=== PATIENT | male | born 1985 | race Hispanic/Latino ===

== ENCOUNTER 2017-04-25 17:58 | Emergency (ER) | payer SELFPAY ==
[2017-04-25 18:10] VITALS: PULSE 96; TEMP 98.2
[2017-04-25] MEDS ORDERED: TDAP Vaccine 0.5 mL Syr IM ONE (18:16)
[2017-04-25] MEDS ORDERED: Lidocaine 1% Inj (20ml) IJ STA (18:16)
[2017-04-25] MEDS ORDERED: Lidocaine 1% Inj (20ml) ONE (18:22)
--- NOTE | 2017-04-25 18:24 | ED PDOC ---
Arrival/HPI - General Chief Complaint: Abnormal Skin Integrity Time Seen by Provider: 04/25/17 18:15 Historian: Patient - History of Present Illness Narrative History of Present Illness (Text): 04/25/17 18:21 32 y/o male, no pmh, nkda, last tetanus over 10 years ago, c/o rt. hand laceration x 8 hours. Pt. stated that he was at work, sliced by the metal, no puncture wound, no foreign body sensation, no fever or chills, no headache or night sweat, no dizziness, no other medical or psychological complaints. Past Medical History - Provider Review Nursing Documentation Reviewed: Yes - Cardiac Hx Cardiac Disorders: No - Pulmonary Hx Respiratory Disorders: Yes Hx Asthma: Yes - Neurological Hx Neurological Disorder: No - HEENT Hx HEENT Disorder: No - Renal Hx Renal Disorder: No - Endocrine/Metabolic Hx Endocrine Disorders: No - Hematological/Oncological Hx Blood Disorders: No - Integumentary Hx Dermatological Disorder: No - Musculoskeletal/Rheumatological Hx Musculoskeletal Disorders: No - Gastrointestinal Hx Gastrointestinal Disorders: No - Genitourinary/Gynecological Hx Genitourinary Disorders: No - Psychiatric Hx Psychophysiologic Disorder: No Hx Substance Use: No - Anesthesia Hx Anesthesia: No Hx Anesthesia Reactions: No Hx Malignant Hyperthermia: No Family/Social History - Physician Review Nursing Documentation Reviewed: Yes Family/Social History: Unknown Family HX Smoking Status: Heavy Smoker > 10 Cigarettes Daily Hx Alcohol Use: Yes Frequency of alcohol use: Socially Hx Substance Use: No Allergies/Home Meds Allergies/Adverse Reactions: Allergies No Known Allergies Allergy (Verified 04/25/17 18:02) Review of Systems - Review of Systems Constitutional: absent: Fatigue, Fevers Eyes: absent: Vision Changes ENT: absent: Hearing Changes Respiratory: absent: SOB, Cough Cardiovascular: absent: Chest Pain Musculoskeletal: absent: Arthralgias, Back Pain Skin: Laceration. absent: Rash, Pruritis, Skin Lesions, Abscess, Ulcer, Cellulitis Neurological: absent: Headache, Dizziness, Focal Weakness, Gait Changes, Speech Changes Physical Exam Vital Signs Reviewed: Yes Vital Signs Temp Pulse Resp BP Pulse Ox 04/25/17 18:45 98.2 F 96 H 16 133/97 H 98 04/25/17 18:06 98.2 F 96 H 16 133/93 H 98 Temperature: Afebrile Blood Pressure: Normal Pulse: Regular Respiratory Rate: Normal Appearance: Positive for: Well-Appearing, Non-Toxic, Comfortable Pain Distress: Mild Mental Status: Positive for: Alert and Oriented X 3 - Systems Exam Head: Present: Atraumatic, Normocephalic Pupils: Present: PERRL Extroacular Muscles: Present: EOMI Conjunctiva: Present: Normal Mouth: Present: Moist Mucous Membranes Neck: Present: Normal Range of Motion Respiratory/Chest: Present: Clear to Auscultation, Good Air Exchange. No: Respiratory Distress, Accessory Muscle Use Cardiovascular: Present: Regular Rate and Rhythm, Normal S1, S2. No: Murmurs Abdomen: Present: Normal Bowel Sounds. No: Tenderness, Distention, Peritoneal Signs Back: Present: Normal Inspection Upper Extremity: Present: Normal Inspection, Other (Rt. hand: visible total of 3cm superficial abrasion with 1.5cm is superficial laceration with no oozing/ discharge, no puncture or deep wound, no visible foreign bodies, FROM without limitation, sensation intact, motor 5/5, +radial pulse, capillary refill< 2 seconds, neurovascular intact. ). No: Cyanosis, Edema Lower Extremity: Present: Normal Inspection. No: Edema Neurological: Present: GCS=15, Speech Normal Skin: Present: Warm, Dry, Normal Color. No: Rashes Psychiatric: Present: Alert, Oriented x 3, Normal Insight, Normal Concentration Medical Decision Making ED Course and Treatment: 04/25/17 18:24 -tdap -keflex -Xray offer and the patient declined to rule out foreign body as he doesn't belief there is foreign body. -sensation intact, motor 5/5, wound irrigate with 1000cc normal saline, clean with betadine, 1% lidocaine injected 0.5cc locally, wound explored and show no foreign bodies, 5-0 nylon made 5 stiches, hemotasis obtained, bacitracin applied , sensation intact, motor 5/5, -Discharge home with keflex, bacitracin oinment, motrin, keep the suture wound dry and clean for 48 hours, return to the for wound check and dressing change in 2 days, follow up with your own pmd and hand specialist within 2 days, sutures need to be removed by day 8-10return to the ER for any new or worsening signs or symptoms. - Medication Orders Current Medication Orders: Discontinued Medications Cephalexin Monohydrate (Keflex) 500 mg PO STAT STA PRN Reason: Protocol Stop: 04/25/17 18:17 Last Admin: 04/25/17 18:41 Dose: 500 mg Lidocaine HCl (Lidocaine 1% (20ml)) 0.5 ml IJ STAT STA Stop: 04/25/17 18:17 Lidocaine HCl (Lidocaine 1% (20ml)) Confirm Administered Dose 20 ml .ROUTE .STK- MED ONE Stop: 04/25/17 18:23 Last Admin: 04/25/17 18:43 Dose: Tetanus/Reduced Diphtheria/Acell Pertussis (Boostrix Vaccine Inj) 0.5 ml IM .ONCE ONE Stop: 04/25/17 18:17 Last Admin: 04/25/17 18:41 Dose: 0.5 ml - PA / DOCUMENTATION SUPERVISOR / Resident Statement / has reviewed & agrees with the documentation as recorded. Disposition/Present on Arrival - Present on Arrival Any Indicators Present on Arrival: No History of DVT/PE: No History of Uncontrolled Diabetes: No Urinary Catheter: No History of Decub. Ulcer: No History Surgical Site Infection Following: None - Disposition Have Diagnosis and Disposition been Completed?: Yes Diagnosis: Hand laceration Disposition: HOME/ ROUTINE Disposition Time: 18:27 Patient Plan: Discharge Condition: GOOD Additional Instructions: Discharge home with keflex, bacitracin oinment, motrin, keep the suture wound dry and clean for 48 hours, return to the for wound check and dressing change in 2 days, follow up with your own pmd and hand specialist within 2 days, sutures need to be removed by day 8-10return to the ER for any new or worsening signs or symptoms. Prescriptions: Bacitracin Ointment [Bacitracin] 1 appful TOP BID #15 g Cephalexin [cephalexin] 500 mg PO QID #28 cap Ibuprofen [Motrin Tab] 600 mg PO QID PRN #24 tab PRN Reason: Other Referrals: Joni Paredes MD [Staff Provider] - Follow up with primary [facility] [Outside] - Follow up with primary Forms: WORK NOTE, [facility] (German)
[2017-04-25 18:46] VITALS: BP 133/97
[2017-04-25 19:06] VITALS: RESP 18; O2SAT 99
== END 2017-04-25 19:01 | disposition home or self-care (01) ==
LOC: MERGE 17:58 → ED 17:58
DX: S61.411A Laceration without foreign body of right hand, initial encounter (principal); W45.8XXA Other foreign body or object entering through skin, initial encounter; Y92.89 Other specified places as the place of occurrence of the external cause; Y99.0 Civilian activity done for income or pay; Z23 Encounter for immunization

== ENCOUNTER 2017-05-05 11:20 | Emergency (ER) | payer MEDICAID, OTHER ==
[2017-05-05 11:36] VITALS: BP 117/79; PULSE 91; RESP 16; TEMP 98.9; O2SAT 98
--- NOTE | 2017-05-05 11:52 | ED PDOC ---
Arrival/HPI - General Chief Complaint: Suture/Staple Removal Time Seen by Provider: 05/05/17 11:21 Historian: Patient - History of Present Illness Narrative History of Present Illness (Text): 05/05/17 11:49 32-year-old male presents today for suture removal to the right hand. Patient states 10 days ago he cut his hand on a piece of metal. Denies numbness weakness or tingling in the extremity. Patient states he has been applying bacitracin twice daily. No fevers or chills. No other complaints Past Medical History - Provider Review Nursing Documentation Reviewed: Yes - Travel History Have you recently traveled outside [place] w/in the past 3 mons?: No - Tetanus Immunization Tetanus Immunization: Up to Date - Cardiac Hx Cardiac Disorders: No - Pulmonary Hx Respiratory Disorders: Yes Hx Asthma: Yes - Neurological Hx Neurological Disorder: No - HEENT Hx HEENT Disorder: No - Renal Hx Renal Disorder: No - Endocrine/Metabolic Hx Endocrine Disorders: No - Hematological/Oncological Hx Blood Disorders: No - Integumentary Hx Dermatological Disorder: No - Musculoskeletal/Rheumatological Hx Musculoskeletal Disorders: No - Gastrointestinal Hx Gastrointestinal Disorders: No - Genitourinary/Gynecological Hx Genitourinary Disorders: No - Psychiatric Hx Psychophysiologic Disorder: No Hx Substance Use: No - Anesthesia Hx Anesthesia: No Hx Anesthesia Reactions: No Hx Malignant Hyperthermia: No - Suicidal Assessment Feels Threatened In Home Enviroment: No Family/Social History - Physician Review Nursing Documentation Reviewed: Yes Family/Social History: Unknown Family HX Smoking Status: Heavy Smoker > 10 Cigarettes Daily Hx Alcohol Use: Yes Frequency of alcohol use: Socially Hx Substance Use: No Allergies/Home Meds Allergies/Adverse Reactions: Allergies No Known Allergies Allergy (Verified 05/05/17 11:33) Home Medications: Home Meds Medication Instructions Recorded Confirmed No Known Home Med [No Known Home 10/23/13 05/05/17 Med] Review of Systems - Review of Systems Constitutional: absent: Fatigue, Fevers Respiratory: absent: SOB, Cough Cardiovascular: absent: Chest Pain, Palpitations Gastrointestinal: absent: Abdominal Pain Musculoskeletal: absent: Arthralgias Skin: Laceration Physical Exam Vital Signs Reviewed: Yes Vital Signs Temp Pulse Resp BP Pulse Ox 05/05/17 11:35 98.9 F 91 H 16 117/79 98 Temperature: Afebrile Blood Pressure: Normal Pulse: Regular Respiratory Rate: Normal Appearance: Positive for: Well-Appearing, Non-Toxic, Comfortable Pain Distress: None Mental Status: Positive for: Alert and Oriented X 3 - Systems Exam Head: Present: Atraumatic Respiratory/Chest: Present: Clear to Auscultation Cardiovascular: Present: Regular Rate and Rhythm Upper Extremity: Present: Other (Right hand: There is a running suture in place over the dorsal aspect of the right hand. No edema nor erythema nor ecchymosis for range of motion of the hand.) Skin: Present: Warm, Dry Psychiatric: Present: Alert, Oriented x 3 Medical Decision Making ED Course and Treatment: 05/05/17 11:51 Patient is nontoxic well-appearing in no distress. Vital signs are stable. Suture removal: 1 running suture removed Wound healing well without signs of infection I advised the patient to keep the wound clean and dry apply bacitracin twice daily and return if symptoms worsen persist or if new symptoms develop Impression: Wound check, suture removal Keep the wound clean and dry Apply bacitracin twice daily Follow up with primary care physician within the next 2 days Return immediately if symptoms worsen persist or if new symptoms develop Disposition/Present on Arrival - Present on Arrival Any Indicators Present on Arrival: No History of DVT/PE: No History of Uncontrolled Diabetes: No Urinary Catheter: No History of Decub. Ulcer: No History Surgical Site Infection Following: None - Disposition Have Diagnosis and Disposition been Completed?: Yes Diagnosis: Encounter for removal of sutures Disposition: HOME/ ROUTINE Disposition Time: 11:49 Patient Plan: Discharge Patient Problems: Current Active Problems Problem Status Onset Encounter for removal of sutures Acute Condition: GOOD Additional Instructions: Keep the wound clean and dry Apply bacitracin twice daily Follow up with primary care physician within the next 2 days Return immediately if symptoms worsen persist or if new symptoms develop Referrals: Pedro Rubio MD [Primary Care Provider] - Follow up with primary
== END 2017-05-05 12:04 | disposition home or self-care (01) ==
LOC: ED 11:20
DX: Z48.02 Encounter for removal of sutures (principal)